=== PATIENT | female | born 2000 | race African-American/Black ===

== ENCOUNTER 2024-05-02 20:14 | Inpatient (IN) | payer OTHER ==
[~2024-05-02] VITALS: Ht 152.4 cm; Wt 54.4 kg
[2024-05-02 22:51] LABS: BASOPHILS % (AUTO) 0.5 % (0.0-2.0); EOSINOPHILS # (AUTO) 0.1 K/uL (0.0-0.7); EOSINOPHILS % (AUTO) 0.7 % (0.0-6.0); HEMATOCRIT 38 % (33-45); HEMOGLOBIN 12.4 g/dL (11.5-14.8); LYMPHOCYTES # (AUTO) 2.2 K/uL (0.8-4.8); LYMPHOCYTES % (AUTO) 27.7 % (20.0-44.0); MEAN CORPUSCULAR HEMOGLOBIN 29 PG (26.0-33.0); MEAN CORPUSCULAR HGB CONC 33 g/dl (31.0-36.0); MEAN CORPUSCULAR VOLUME 89 fL (82-100); MONOCYTES # (AUTO) 0.9 K/uL (0.1-1.30); MONOCYTES % (AUTO) 10.6 % (2.0-12.0); NEUTROPHILS # (AUTO) 4.9 K/uL (1.8-8.9); NEUTROPHILS % (AUTO) 60.5 % (43.0-81.0); PLATELET COUNT (AUTO) 234 K/uL (150-450); RED BLOOD CELL COUNT(AUTO) 4.27 MIL/uL (4.0-5.2); RED CELL DISTRIBUTION WIDTH 20.5 % (11.5-15.0); WHITE BLOOD COUNT (AUTO) 8.1 K/uL (4.3-11.0)
[2024-05-02 23:15] LABS: CALCIUM, SERUM 8.8 mg/dL (8.5-10.1); CREATININE 0.2 mg/dL (0.6-1.3); POTASSIUM 4.1 mmol/L (3.5-5.1)
[2024-05-02 23:26] LABS: BILIRUBIN,TOTAL 0.2 mg/dL (0.2-1.0); TOTAL PROTEIN, SERUM 7.3 g/dL (6.4-8.2)
[2024-05-03] MEDS: LEVETIRACETAM (500MG) 500 MG in IV NS 0.9% 100 ML IV STA (08:01)
[2024-05-03 08:15] LABS: INR 1.05 (0.91-1.10); PARTIAL THROMBOPLASTIN TIME 28.5 SEC (24.3-34.3); PROTHROMBIN TIME 11.1 SECS (9.2-11.1)
[2024-05-03] MEDS ORDERED: LANS30TA4 JT (10:51)
[2024-05-03] MEDS ORDERED: LACO200T2 JT (10:51)
[2024-05-03] MEDS ORDERED: DIVA250T4 JT (10:51)
[2024-05-03] MEDS ORDERED: DIAZ20SP NS (10:51)
[2024-05-03] MEDS ORDERED: BRIV100T JT (10:51)
[2024-05-03] MEDS ORDERED: PERA10TA JT (10:51)
[2024-05-03] MEDS ORDERED: GLYC2TAB21 JT (10:51)
[2024-05-03] MEDS: IV D5/0.45 NACL 1,000 ML IV PRN (11:22)
[2024-05-03] MEDS ORDERED: ACETAMINOPHEN 325 MG TABLET PO PRN (11:30)
[2024-05-03] MEDS ORDERED: Z GUARD REMEDY 4 OZ OINT TP PRN (11:30)
[2024-05-03] MEDS ORDERED: MAG HYDROX/AL HYDROX/SIMETH 30 ML UDC PO PRN (11:30)
[2024-05-03] MEDS ORDERED: ONDANSETRON HCL/PF 4 MG/2 ML VIAL IVP PRN (11:30)
[2024-05-03] MEDS ORDERED: MAGNESIUM HYDROXIDE 30 ML UDC PO PRN (11:30)
[2024-05-03] MEDS: LEVETIRACETAM (500MG) 500 MG in IV NS 0.9% 100 ML IV SCH (11:43)
[2024-05-03 13:00] VITALS: BP 112/61; TEMP 98.1; O2SAT 99
[2024-05-03 20:00] VITALS: BP 109/72; TEMP 98.4; O2SAT 100
[2024-05-03 21:00] VITALS: BP 109/72; TEMP 98.4; O2SAT 100
[2024-05-04 05:00] VITALS: BP 102/72; TEMP 98.2; O2SAT 100
[2024-05-04 06:34] LABS: BASOPHILS % (AUTO) 0.3 % (0.0-2.0); EOSINOPHILS % (AUTO) 0.3 % (0.0-6.0); HEMATOCRIT 41 % (33-45); HEMOGLOBIN 13.2 g/dL (11.5-14.8); LYMPHOCYTES # (AUTO) 1.9 K/uL (0.8-4.8); LYMPHOCYTES % (AUTO) 28.2 % (20.0-44.0); MEAN CORPUSCULAR HEMOGLOBIN 29 PG (26.0-33.0); MEAN CORPUSCULAR HGB CONC 32 g/dl (31.0-36.0); MEAN CORPUSCULAR VOLUME 90 fL (82-100); NEUTROPHILS # (AUTO) 3.7 K/uL (1.8-8.9); NEUTROPHILS % (AUTO) 56.2 % (43.0-81.0); PLATELET COUNT (AUTO) 324 K/uL (150-450); RED BLOOD CELL COUNT(AUTO) 4.56 MIL/uL (4.0-5.2); RED CELL DISTRIBUTION WIDTH 20.8 % (11.5-15.0); WHITE BLOOD COUNT (AUTO) 6.6 K/uL (4.3-11.0)
[2024-05-04 07:24] LABS: CREATININE 0.4 mg/dL (0.6-1.3); MAGNESIUM 1.9 mg/dL (1.8-2.4); PHOSPHORUS 3.4 mg/dL (2.5-4.9); POTASSIUM 3.9 mmol/L (3.5-5.1)
[2024-05-04 09:00] VITALS: BP 90/54; TEMP 98.2; O2SAT 100
[2024-05-04 09:04] LABS: BASOPHILS % (MANUAL) 0 % (0.0-2.0); EOSINOPHILS % (MANUAL) 0 % (0-4); LYMPHOCYTES % (MANUAL) 28 % (16-48); MONOCYTES % (MANUAL) 13 % (0-11.0); NEUTROPHILS % (MANUAL) 59 (42-76); PLATELET ESTIMATE ADEQUATE
[2024-05-04 13:00] VITALS: BP 97/80; TEMP 98.2; O2SAT 100
[2024-05-04 17:00] VITALS: BP 118/70; TEMP 98.6; O2SAT 91
[2024-05-04] MEDS: LACOSAMIDE 200 MG in IV NS 0.9% 100 ML IV ONE (19:58)
[2024-05-04] MEDS: VALPROATE 500 MG in IV D5W 100 ML IV ONE (20:53)
[2024-05-04] MEDS ORDERED: LACOSAMIDE 200 MG in IV NS 0.9% 50 ML IV SCH (21:00)
[2024-05-04] MEDS: VALPROATE 750 MG in IV D5W 100 ML IV SCH (22:08)
[2024-05-04 22:26] VITALS: BP 116/81; TEMP 98.5; O2SAT 98
[2024-05-04] MEDS: VIMPAT 200 MG in IV NS 0.9% 100 ML IV SCH (23:05)
[2024-05-05 05:24] VITALS: BP 118/72; TEMP 98.2; O2SAT 98
[2024-05-05] MEDS ORDERED: LORAZEPAM INJ 2 MG/ML VIAL IV PRN (10:30)
[2024-05-05 12:31] LABS: CALCIUM, SERUM 8.3 mg/dL (8.5-10.1); CREATININE 0.3 mg/dL (0.6-1.3); POTASSIUM 4.1 mmol/L (3.5-5.1)
[2024-05-05] MEDS ORDERED: ACET325T53 PO (20:12)
[2024-05-05] MEDS ORDERED: LACO200T2 PO (20:12)
[2024-05-05] MEDS ORDERED: [UNRECOGNIZED DRUG - CODE] IV (20:12)
[2024-05-05] MEDS ORDERED: DIVA500T4 PO (20:12)
[2024-05-05] MEDS ORDERED: LEVE500T9 PO (20:12)
[2024-05-05 21:00] VITALS: BP 119/72; TEMP 99; O2SAT 98
== END 2024-05-06 01:09 | disposition short-term general hospital (02) | DRG 252 ==
LOC: ER 20:25 → MEDSG1 05-03 08:53
PROVIDERS: ADMIT Nurse Practitioner Family; ATTEND Nurse Practitioner Family
DX: K94.13 Enterostomy malfunction (principal); G93.40 Encephalopathy, unspecified; D68.59 Other primary thrombophilia; G91.9 Hydrocephalus, unspecified; G40.909 Epilepsy, unspecified, not intractable, without status epilepticus; Y83.3 Surgical operation with formation of external stoma as the cause of abnormal reaction of the patient, or of later complication, without mention of misadventure at the time of the procedure; Z98.2 Presence of cerebrospinal fluid drainage device; R13.10 Dysphagia, unspecified; Z74.09 Other reduced mobility; Y73.8 Miscellaneous gastroenterology and urology devices associated with adverse incidents, not elsewhere classified; Y92.009 Unspecified place in unspecified non-institutional (private) residence as the place of occurrence of the external cause
CPT/HCPCS: 36415; 71045-TC; 74018; 80048-TC; 80053-TC; 80164-TC; 83735-TC; 84100-TC; 84702-TC; 85025-TC; 85730-TC; 86850-TC; A4223; A6403; G0378; J1953; J3490; J7030; J7042; J7060